=== PATIENT | female | born 2000 | race African-American/Black ===

== ENCOUNTER 2021-12-18 18:00 | Observation (INO) | payer MEDICAID, OTHER ==
[~2021-12-18] VITALS: Ht 162.6 cm; Wt 93.0 kg
== END 2021-12-18 19:20 | disposition home or self-care (01) ==
LOC: LDRP 18:00
PROVIDERS: ADMIT Obstetrics & Gynecology; ATTEND Obstetrics & Gynecology
DX: O36.8120 Decreased fetal movements, second trimester, not applicable or unspecified (principal); O26.892 Other specified pregnancy related conditions, second trimester; R51.9 Headache, unspecified; Z3A.21 21 weeks gestation of pregnancy; Z88.0 Allergy status to penicillin
CPT/HCPCS: 59025; 81002; 94760; G0378

== ENCOUNTER 2025-09-28 06:10 | Emergency (ER) | payer MEDICAID, OTHER ==
[~2025-09-28] VITALS: Ht 162.6 cm; Wt 10.2 kg
[2025-09-28 06:13] VITALS: BP 120/78; PULSE 85; RESP 20; TEMP 96.7; O2SAT 98
== END 2025-09-28 07:54 | disposition left against medical advice (07) ==
LOC: ER 06:10 → MERGE 06:10 → ER 07:54
DX: R07.89 Other chest pain (principal); Z53.21 Procedure and treatment not carried out due to patient leaving prior to being seen by health care provider